=== PATIENT | female | born 1990 | race Two or more races ===

== ENCOUNTER 2024-01-20 10:37 | Emergency (ER) | payer MEDICAID ==
[~2024-01-20] VITALS: Ht 162.6 cm; Wt 94.1 kg
[2024-01-20 12:31] LABS: Urine Bacteria None Seen /hpf (None Seen)
[2024-01-20 12:41] LABS: Urine Blood 3+ /uL (Negative); Urine Clarity Ex.Turbid (Clear); Urine Color Brown (Yellow); Urine Mucus FEW (None Seen); Urine Protein, UAD 2+ (Negative); Urine Specific Gravity 1.032 (1.001-1.035); Urine Urobilinogen Normal (Negative); Urine WBC 3710 /hpf (0 - 5); Urine WBC Clumps PRESENT /hpf (None Seen)
[2024-01-20 12:58] LABS: Basophils # (auto) 0.1 10 ^3/uL (0-0.2); Basophils % (auto) 0.6 % (0.0-2.0); Eosinophils # (auto) 0.1 10 ^3/uL (0-0.8); Eosinophils % (auto) 0.5 % (0.0-7.0); Hematocrit 28.9 % (36.0-46.0); Hemoglobin 8.8 g/dL (12.2-16.2); Lymphocytes # (auto) 1.9 10 ^3/uL (0.4-5.4); Lymphocytes % (auto) 16.4 % (10.0-50.0); Mean Corpuscular Hgb Conc. 30.5 g/dL (32.0-36.0); Mean Corpuscular Volume 72.2 fL (80.0-100.0); Monocytes # (auto) 0.7 10 ^3/uL (0-1.3); Monocytes % (auto) 6.2 % (0.0-12.0); Neutrophils # (auto) 8.7 10 ^3/uL (1.6-8.6); Neutrophils % (auto) 76.3 % (37.0-80.0); Red Cell Distribution Width 18.7 % (11.8-14.3); White Blood Cell 11.4 10^3/uL (4.4-10.8)
[2024-01-20 13:08] LABS: Chloride 109 mmol/L (98-107); Potassium 3.8 mmol/L (3.5-5.1); Sodium 138 mmol/L (136-145)
[2024-01-20 13:09] LABS: Anion Gap 6 (5-15); Calcium 9.5 mg/dL (8.5-10.1); Carbon Dioxide 23 mmol/L (20-30)
[2024-01-20 13:14] LABS: BUN/Creatinine Ratio 9.9 (10.0-20.0); Blood Urea Nitrogen 10 mg/dL (9-23); Glucose 112 mg/dL (74-106)
[2024-01-20] MEDS: FERROUS SULFATE 325mg EC TAB PO ONE (14:04)
[2024-01-20] MEDS: cefTRIAXone 1GM/50ML D5W 50 ML IV ONE (14:07)
[2024-01-20] MEDS ORDERED: DOCUSATE SOD 100 MG CAP PO PRN (14:45)
[2024-01-20] MEDS ORDERED: ONDANSETRON HCL 4 MG/2 ML VIAL IV PRN (14:45)
[2024-01-20] MEDS ORDERED: MORPHINE SULFATE INJ 2 MG/ml SYRG IV PRN (14:45)
[2024-01-20] MEDS: SODIUM CHLORIDE 0.9% 1,000 ML IV SCH (15:29)
[2024-01-20] MEDS ORDERED: KETOROLAC TROMETH 30 MG/ML 1ML VIAL IV PRN (16:30)
[2024-01-20 17:14] VITALS: RESP 20; O2SAT 96
[2024-01-20 17:14] LABS: % Iron Saturation 3.1 % (15-50)
[2024-01-20 17:42] LABS: Ferritin 80.6 ng/mL (10-291)
[2024-01-20 19:45] VITALS: BP 117/64; PULSE 92; RESP 20; TEMP 98.7; O2SAT 99
[2024-01-21] MEDS ORDERED: cefTRIAXone 1GM/50ML D5W 50 ML IV SCH (09:00)
[2024-01-23 11:25] LABS: Folate (Folic Acid) 10.48 ng/mL (>5.38)
== END 2024-01-20 20:36 | disposition left against medical advice (07) ==
LOC: ER 10:37
DX: A41.9 Sepsis, unspecified organism (principal); R10.2 Pelvic and perineal pain; N39.0 Urinary tract infection, site not specified; D64.9 Anemia, unspecified
CPT/HCPCS: 36415; 74176; 80048; 81001; 81025; 82607; 82728; 82746; 83540; 83550; 83615; 84702; 85025; 85045; 87086; 87088; 87186; 96361; 96365; 99285; J0696; J7030

== ENCOUNTER 2024-03-25 20:42 | Inpatient (IN) | payer MEDICAID ==
[~2024-03-25] VITALS: Ht 162.6 cm; Wt 88.6 kg
[2024-03-25 21:11] LABS: Urine Bacteria None Seen /hpf (None Seen)
[2024-03-25 21:21] LABS: Urine Blood 3+ /uL (Negative); Urine Clarity Ex.Turbid (Clear); Urine Color Dark-Brown (Yellow); Urine Mucus FEW (None Seen); Urine Protein, UAD 3+ (Negative); Urine Specific Gravity 1.024 (1.001-1.035); Urine Urobilinogen Normal (Negative); Urine WBC 1832 /hpf (0 - 5); Urine WBC Clumps PRESENT /hpf (None Seen)
[2024-03-25 21:33] LABS: Basophils # (auto) 0.1 10 ^3/uL (0-0.2); Eosinophils # (auto) 0.1 10 ^3/uL (0-0.8); Hemoglobin 7.1 g/dL (12.2-16.2); Neutrophils # (auto) 12.7 10 ^3/uL (1.6-8.6)
[2024-03-25 21:35] LABS: Basophils % (auto) 0.6 % (0.0-2.0); Eosinophils % (auto) 0.4 % (0.0-7.0); Hematocrit 23.6 % (36.0-46.0); Lymphocytes % (auto) 17.2 % (10.0-50.0); Mean Corpuscular Hemoglobin 21.7 pg (28.0-32.0); Mean Corpuscular Hgb Conc. 29.9 g/dL (32.0-36.0); Mean Corpuscular Volume 72.5 fL (80.0-100.0); Monocytes # (auto) 1.6 10 ^3/uL (0-1.3); Monocytes % (auto) 9.3 % (0.0-12.0); Neutrophils % (auto) 72.5 % (37.0-80.0); Nucleated Red Blood Cells % 0.1 %; Red Blood Cells 3.26 10^6/uL (4.0-5.20); White Blood Cell 17.5 10^3/uL (4.4-10.8)
[2024-03-25 21:49] LABS: Chloride 104 mmol/L (98-107); Potassium 3.5 mmol/L (3.5-5.1); Sodium 136 mmol/L (136-145)
[2024-03-25 21:50] LABS: Anion Gap 10 (5-15); Carbon Dioxide 22 mmol/L (20-30)
[2024-03-25 21:51] LABS: Calcium 9.9 mg/dL (8.7-10.4)
[2024-03-25 21:56] LABS: BUN/Creatinine Ratio 10.2 (10.0-20.0); Blood Urea Nitrogen 10 mg/dL (9-23); Glucose 123 mg/dL (74-106)
[2024-03-25 21:58] LABS: Anisocytosis Slight; Hypochromia Slight; Large Platelets FEW; Macrocytosis Slight; Platelet Estimate Increa
[2024-03-26] VITALS (10 sets, daily range): BP systolic 93–115; BP diastolic 48–66; PULSE 87–116; RESP 15–20; TEMP 98.5–98.7; O2SAT 93–98
[2024-03-26] MEDS ORDERED: ONDANSETRON HCL 4 MG/2 ML VIAL IV PRN
[2024-03-26] MEDS ORDERED: MORPHINE SULFATE INJ 2 MG/ml SYRG IV PRN
[2024-03-26] MEDS ORDERED: TEMAZEPAM 15 MG CAP PO PRN
[2024-03-26] MEDS: cefTRIAXone 1GM/50ML D5W 50 ML IV ONE ×2 (01:10→01:52)
[2024-03-26] MEDS: KETOROLAC TROMETH 30 MG/ML 1ML VIAL IV ONE (01:10)
[2024-03-26] MEDS: SODIUM CHLORIDE 0.9% 1,000 ML IV ONE ×2 (01:10→01:52)
[2024-03-26 08:40] LABS: Basophils # (auto) 0.1 10 ^3/uL (0-0.2); Eosinophils # (auto) 0.1 10 ^3/uL (0-0.8); Eosinophils % (auto) 0.5 % (0.0-7.0); Lymphocytes # (auto) 2.8 10 ^3/uL (0.4-5.4)
[2024-03-26 08:43] LABS: Basophils % (auto) 0.8 % (0.0-2.0); Hematocrit 20.1 % (36.0-46.0); Mean Corpuscular Hgb Conc. 30.8 g/dL (32.0-36.0); Mean Corpuscular Volume 71.6 fL (80.0-100.0); Monocytes # (auto) 1.6 10 ^3/uL (0-1.3); Monocytes % (auto) 11.3 % (0.0-12.0); Neutrophils # (auto) 9.5 10 ^3/uL (1.6-8.6); Neutrophils % (auto) 67.4 % (37.0-80.0); Red Cell Distribution Width 18.7 % (11.8-14.3)
[2024-03-26 08:47] LABS: Anion Gap 7 (5-15); Calcium 9.3 mg/dL (8.7-10.4); Carbon Dioxide 21 mmol/L (20-30); Chloride 108 mmol/L (98-107); Potassium 4.2 mmol/L (3.5-5.1); Sodium 136 mmol/L (136-145)
[2024-03-26] MEDS: HYDROcodone-ACET 5/325MG TAB PO PRN (08:47)
[2024-03-26 08:53] LABS: Blood Urea Nitrogen 14 mg/dL (9-23); Glucose 96 mg/dL (74-106)
[2024-03-26 08:56] LABS: Hemoglobin 6.2 g/dL (12.2-16.2)
[2024-03-26 22:52] LABS: Hematocrit 21.8 % (36.0-46.0)
[2024-03-26 22:56] LABS: Hemoglobin 6.8 g/dL (12.2-16.2)
[2024-03-27] VITALS (8 sets, daily range): BP systolic 91–119; BP diastolic 54–78; PULSE 86–110; RESP 16–18; TEMP 98.1–102.6; O2SAT 93–98
[2024-03-27] MEDS ORDERED: cefTRIAXone 1GM/50ML D5W 50 ML IV SCH
[2024-03-27] MEDS ORDERED: CALC-312 PO (00:49)
[2024-03-27] MEDS ORDERED: MULT1TAB96 PO (00:49)
[2024-03-27] MEDS: cefTRIAXone 1GM/50ML D5W 50 ML IV SCH (02:40)
[2024-03-27] MEDS: ACETAMINOPHEN 325 MG TAB PO PRN (05:21)
[2024-03-27 09:06] LABS: Basophils # (auto) 0.1 10 ^3/uL (0-0.2); Eosinophils # (auto) 0.1 10 ^3/uL (0-0.8); Eosinophils % (auto) 0.6 % (0.0-7.0); Hemoglobin 9.1 g/dL (12.2-16.2); Lymphocytes # (auto) 2.3 10 ^3/uL (0.4-5.4); Mean Corpuscular Hemoglobin 24.3 pg (28.0-32.0); Mean Corpuscular Hgb Conc. 31.9 g/dL (32.0-36.0); Neutrophils # (auto) 10.4 10 ^3/uL (1.6-8.6)
[2024-03-27 09:09] LABS: Basophils % (auto) 0.8 % (0.0-2.0); Hematocrit 28.5 % (36.0-46.0); Lymphocytes % (auto) 16.3 % (10.0-50.0); Mean Corpuscular Volume 76.1 fL (80.0-100.0); Neutrophils % (auto) 75.3 % (37.0-80.0); Red Blood Cells 3.74 10^6/uL (4.0-5.20); Red Cell Distribution Width 22.3 % (11.8-14.3); White Blood Cell 13.8 10^3/uL (4.4-10.8)
[2024-03-27 09:21] LABS: INR 1.17 (0.9-1.15); Partial Thromboplastin Time 32.7 SEC (24.5-34.5); Prothrombin Time 12.3 sec (9.3-11.8)
[2024-03-27 09:24] LABS: Alanine Aminotransferase 21 U/L (7-40); Alkaline Phosphatase 190 U/L (46-116); Anion Gap 8 (5-15); BUN/Creatinine Ratio 10.1 (10.0-20.0); Blood Urea Nitrogen 10 mg/dL (9-23); Calcium 9.2 mg/dL (8.7-10.4); Carbon Dioxide 22 mmol/L (20-30); Chloride 105 mmol/L (98-107); Glucose 115 mg/dL (74-106); Potassium 3.8 mmol/L (3.5-5.1); Sodium 135 mmol/L (136-145)
[2024-03-27 09:25] LABS: Albumin 3.7 g/dL (3.2-4.8); Aspartate Aminotransferase 29 U/L (13-40); Total Protein 7.4 g/dL (5.7-8.2)
[2024-03-27] MEDS: IRON SUCROSE COMPLEX 100 ML IV SCH (12:09)
[2024-03-27] MEDS: SODIUM CHLORIDE 0.9% 1,000 ML IV SCH (13:15)
[2024-03-28 01:00] VITALS: BP 92/56; PULSE 89; RESP 18; TEMP 98.2; O2SAT 94
[2024-03-28 05:00] VITALS: BP 112/67; PULSE 97; RESP 16; TEMP 98.9; O2SAT 98
[2024-03-28 06:51] LABS: Chloride 106 mmol/L (98-107); Potassium 4.2 mmol/L (3.5-5.1); Sodium 137 mmol/L (136-145)
[2024-03-28 06:52] LABS: Anion Gap 8 (5-15); Calcium 9.4 mg/dL (8.7-10.4); Carbon Dioxide 23 mmol/L (20-30)
[2024-03-28 06:58] LABS: Basophils # (auto) 0.1 10 ^3/uL (0-0.2); Blood Urea Nitrogen 7 mg/dL (9-23); Eosinophils # (auto) 0.1 10 ^3/uL (0-0.8); Glucose 87 mg/dL (74-106); Hematocrit 27.2 % (36.0-46.0); White Blood Cell 13.7 10^3/uL (4.4-10.8)
[2024-03-28 07:01] LABS: Basophils % (auto) 0.5 % (0.0-2.0); Eosinophils % (auto) 0.6 % (0.0-7.0); Hemoglobin 8.7 g/dL (12.2-16.2); Lymphocytes # (auto) 1.8 10 ^3/uL (0.4-5.4); Mean Corpuscular Hemoglobin 24.4 pg (28.0-32.0); Mean Corpuscular Hgb Conc. 32.1 g/dL (32.0-36.0); Mean Corpuscular Volume 75.9 fL (80.0-100.0); Monocytes # (auto) 1.3 10 ^3/uL (0-1.3); Monocytes % (auto) 9.3 % (0.0-12.0); Neutrophils # (auto) 10.5 10 ^3/uL (1.6-8.6); Neutrophils % (auto) 76.6 % (37.0-80.0); Red Blood Cells 3.58 10^6/uL (4.0-5.20)
[2024-03-28 07:16] LABS: Red Cell Distribution Width 21.9 % (11.8-14.3)
[2024-03-28 08:00] VITALS: BP 105/67; PULSE 116; RESP 18; TEMP 100.1; O2SAT 98
[2024-03-28 13:00] VITALS: BP 100/62; PULSE 90; RESP 16; TEMP 98.4; O2SAT 98
[2024-03-28] MEDS: FUROSEMIDE 40 MG/4 ML VIAL IV ONE (13:36)
[2024-03-28] MEDS: MEROPENEM 1GM IVPB 50 ML IV ONE (16:00)
[2024-03-28 16:24] VITALS: BP 109/70; PULSE 109; RESP 18; TEMP 100.6; O2SAT 96
[2024-03-28 21:00] VITALS: BP 96/62; PULSE 90; RESP 20; TEMP 98.1; O2SAT 95
[2024-03-28] MEDS: MEROPENEM 1GM IVPB 50 ML IV SCH (21:32)
[2024-03-29] VITALS (7 sets, daily range): BP systolic 90–109; BP diastolic 56–65; PULSE 9–100; RESP 16–20; TEMP 98.2–99.3; O2SAT 95–100
[2024-03-29 07:44] LABS: Basophils # (auto) 0.1 10 ^3/uL (0-0.2); Basophils % (auto) 0.6 % (0.0-2.0); Eosinophils # (auto) 0.1 10 ^3/uL (0-0.8); Eosinophils % (auto) 0.6 % (0.0-7.0); Hematocrit 25.9 % (36.0-46.0); Lymphocytes # (auto) 2.2 10 ^3/uL (0.4-5.4); Lymphocytes % (auto) 16.9 % (10.0-50.0); Mean Corpuscular Hgb Conc. 31.1 g/dL (32.0-36.0); Mean Corpuscular Volume 77.2 fL (80.0-100.0); Monocytes # (auto) 1.6 10 ^3/uL (0-1.3); Monocytes % (auto) 12.4 % (0.0-12.0); Neutrophils # (auto) 8.8 10 ^3/uL (1.6-8.6); Neutrophils % (auto) 69.5 % (37.0-80.0); Red Blood Cells 3.35 10^6/uL (4.0-5.20); Red Cell Distribution Width 22.4 % (11.8-14.3); White Blood Cell 12.7 10^3/uL (4.4-10.8)
[2024-03-29 07:50] LABS: Anion Gap 8 (5-15); Carbon Dioxide 23 mmol/L (20-30); Chloride 105 mmol/L (98-107); Sodium 136 mmol/L (136-145)
[2024-03-29 07:51] LABS: Calcium 9.1 mg/dL (8.7-10.4)
[2024-03-29 07:56] LABS: BUN/Creatinine Ratio 9.5 (10.0-20.0); Blood Urea Nitrogen 8 mg/dL (9-23); Glucose 84 mg/dL (74-106)
[2024-03-29] MEDS ORDERED: FUROSEMIDE 40 MG/4 ML VIAL IV ONE (15:45)
[2024-03-30] VITALS (7 sets, daily range): BP systolic 98–109; BP diastolic 55–63; PULSE 76–97; RESP 16–18; TEMP 97.8–99; O2SAT 92–99
[2024-03-30] MEDS: MEROPENEM 1GM IVPB 50 ML IV SCH (02:02)
[2024-03-30 09:33] LABS: Basophils # (auto) 0.1 10 ^3/uL (0-0.2); Eosinophils # (auto) 0.1 10 ^3/uL (0-0.8); Hemoglobin 9.3 g/dL (12.2-16.2); Lymphocytes # (auto) 2.2 10 ^3/uL (0.4-5.4)
[2024-03-30 09:35] LABS: Basophils % (auto) 0.6 % (0.0-2.0); Hematocrit 29.1 % (36.0-46.0); Lymphocytes % (auto) 16.6 % (10.0-50.0); Mean Corpuscular Hemoglobin 24.5 pg (28.0-32.0); Mean Corpuscular Hgb Conc. 31.9 g/dL (32.0-36.0); Mean Corpuscular Volume 76.7 fL (80.0-100.0); Monocytes # (auto) 1.3 10 ^3/uL (0-1.3); Monocytes % (auto) 10.2 % (0.0-12.0); Neutrophils # (auto) 9.4 10 ^3/uL (1.6-8.6); Neutrophils % (auto) 71.6 % (37.0-80.0); Red Blood Cells 3.79 10^6/uL (4.0-5.20); Red Cell Distribution Width 22.6 % (11.8-14.3); White Blood Cell 13.1 10^3/uL (4.4-10.8)
[2024-03-30] MEDS ORDERED: BISACODYL 10 MG RECT SUPP PR PRN (13:15)
[2024-03-31 01:00] VITALS: BP 93/54; PULSE 73; RESP 16; TEMP 98.2; O2SAT 96
[2024-03-31 05:00] VITALS: BP 88/57; PULSE 73; RESP 20; TEMP 98; O2SAT 100
[2024-03-31 09:00] VITALS: BP_SYST 101; BP_SYST 115; BP_DIAS 54; BP_DIAS 59; PULSE 60; PULSE 75; RESP 16; RESP 19; TEMP 98.1; O2SAT 95; O2SAT 98
[2024-03-31 13:00] VITALS: BP 102/69; PULSE 79; RESP 20; TEMP 99.2; O2SAT 97
[2024-03-31 17:09] VITALS: BP 111/67; PULSE 60; RESP 17; TEMP 98.9; O2SAT 97
[2024-03-31 21:00] VITALS: BP 108/64; PULSE 84; RESP 18; TEMP 98.3; O2SAT 97
[2024-03-31] MEDS: POLYETHYLENE GLYCOL 17 GM PWDR PO PRN (21:02)
[2024-03-31] MEDS: DOCUSATE SOD 100 MG CAP PO SCH (23:07)
[2024-04-01 01:00] VITALS: BP_SYST 114; BP_SYST 83; BP_DIAS 48; BP_DIAS 57; PULSE 89; RESP 18; TEMP 98.6; O2SAT 97
[2024-04-01 08:10] VITALS: BP 99/60; PULSE 84; RESP 20; TEMP 98.8; O2SAT 95
[2024-04-01 12:15] VITALS: BP 96/54; PULSE 79; RESP 20; TEMP 99.1; O2SAT 94
[2024-04-01 16:15] VITALS: BP 101/54; PULSE 92; RESP 20; TEMP 100.3; O2SAT 95
[2024-04-01 18:56] VITALS: TEMP 99.8
[2024-04-01 21:00] VITALS: BP_SYST 131; BP_SYST 87; BP_DIAS 45; BP_DIAS 77; PULSE 72; PULSE 88; RESP 16; RESP 20; TEMP 98.2; O2SAT 96; O2SAT 97
[2024-04-02 01:00] VITALS: BP 92/41; PULSE 77; RESP 18; TEMP 97.6; O2SAT 89
[2024-04-02 05:00] VITALS: BP 93/53; PULSE 92; RESP 20; TEMP 99.7; O2SAT 94
[2024-04-02 07:26] LABS: Anion Gap 5 (5-15); Carbon Dioxide 25 mmol/L (20-30); Chloride 104 mmol/L (98-107); Potassium 4.3 mmol/L (3.5-5.1); Sodium 134 mmol/L (136-145)
[2024-04-02 07:27] LABS: Calcium 9.3 mg/dL (8.7-10.4)
[2024-04-02 07:32] LABS: BUN/Creatinine Ratio 14.1 (10.0-20.0); Blood Urea Nitrogen 11 mg/dL (9-23); Glucose 81 mg/dL (74-106)
[2024-04-02 07:39] LABS: Basophils # (auto) 0.1 10 ^3/uL (0-0.2); Hemoglobin 8.8 g/dL (12.2-16.2); Lymphocytes # (auto) 1.6 10 ^3/uL (0.4-5.4); Monocytes % (auto) 7.5 % (0.0-12.0); Neutrophils # (auto) 10.5 10 ^3/uL (1.6-8.6)
[2024-04-02 07:43] LABS: Basophils % (auto) 0.7 % (0.0-2.0); Eosinophils # (auto) 0.2 10 ^3/uL (0-0.8); Eosinophils % (auto) 1.2 % (0.0-7.0); Hematocrit 27.6 % (36.0-46.0); Mean Corpuscular Hemoglobin 24.9 pg (28.0-32.0); Mean Corpuscular Hgb Conc. 31.9 g/dL (32.0-36.0); Neutrophils % (auto) 78.6 % (37.0-80.0); Red Blood Cells 3.54 10^6/uL (4.0-5.20); White Blood Cell 13.4 10^3/uL (4.4-10.8)
[2024-04-02 08:00] LABS: Red Cell Distribution Width 22.6 % (11.8-14.3)
[2024-04-02 08:47] VITALS: BP 109/55; PULSE 82; RESP 16; TEMP 98.7; O2SAT 93
[2024-04-02] MEDS ORDERED: LEVO500T91 PO (11:26)
[2024-04-02 13:19] VITALS: BP 114/61; PULSE 82; RESP 16; TEMP 99; O2SAT 93
[2024-04-02 16:21] VITALS: BP 114/61; PULSE 82; RESP 16; TEMP 99; O2SAT 93
[2024-04-02 16:45] VITALS: BP 104/57; PULSE 91; RESP 17; TEMP 98.4; O2SAT 98
== END 2024-04-02 17:45 | disposition home or self-care (01) | DRG 720 ==
LOC: ER 20:42 → OVERFLOW 23:53 → WEST WING 03-26 22:56
PROVIDERS: ADMIT Nurse Practitioner; ATTEND Internal Medicine
PROC: 30233N1 Transfusion of Nonautologous Red Blood Cells into Peripheral Vein, Percutaneous Approach (ICD-10-PCS; principal; 2024-03-26)
DX: A41.9 Sepsis, unspecified organism (principal); N13.6 Pyonephrosis; N83.291 Other ovarian cyst, right side; E66.9 Obesity, unspecified; D50.9 Iron deficiency anemia, unspecified; N83.292 Other ovarian cyst, left side; Z87.440 Personal history of urinary (tract) infections; Z87.442 Personal history of urinary calculi; Z83.3 Family history of diabetes mellitus; Z82.49 Family history of ischemic heart disease and other diseases of the circulatory system; Z98.84 Bariatric surgery status
CPT/HCPCS: 36415; 36430; 76775; 76830; 76856; 78707; 80048; 80053; 81001; 81025; 83605; 85014; 85018; 85025; 85610; 85730; 86850; 86900; 86901; 86920; 87086; 96365; 96366; G0378; J1756; J1885; J2185